=== PATIENT | female | born 1995 | race Caucasian/White ===

== ENCOUNTER 2024-09-23 19:56 | Emergency (ER) | payer MEDICAID ==
[2024-09-23] MEDS: Ketorolac 15 MG/ML SDV IVPUSH ONE (20:51)
[2024-09-23 21:42] VITALS: BP 127/79; PULSE 98
== END 2024-09-23 23:05 | disposition home or self-care (01) ==
LOC: JP.ED 19:56
DX: S83.92XA Sprain of unspecified site of left knee, initial encounter (principal); Z79.899 Other long term (current) drug therapy; X50.1XXA Overexertion from prolonged static or awkward postures, initial encounter; Y93.01 Activity, walking, marching and hiking
CPT/HCPCS: 73560; 96374; 99284; J1885